=== PATIENT | male | born 1985 | race Caucasian/White ===

== ENCOUNTER 2019-03-06 16:38 | Emergency (ER) | payer OTHER ==
[2019-03-06 17:11] VITALS: BP 130/87
--- NOTE | 2019-03-06 17:37 | UC ---
Respiratory Complaint HPI - HPI Summary HPI Summary: 33-year-old male who states he has had increasing shortness of breath since he started on medication to treat hepatitis C. He also has some subcutaneous nodules on both arms which has been progressively worsening over the past few weeks. He denies IV drug use. - History of Current Complaint Chief Complaint: UCRespiratory Stated Complaint: CHEST CONGESTION Time Seen by Provider: 03/06/19 17:36 Hx Obtained From: Patient Onset/Duration: Gradual Onset Timing: Intermittent Episodes Severity Initially: Mild Severity Currently: Mild Pain Intensity: 0 Character: Cough: Nonproductive Aggravating Factors: Exertion Alleviating Factors: Spontaneous Resolution Associated Signs And Symptoms: Positive: Negative - Allergies/Home Medications Allergies/Adverse Reactions: Allergies Allergy/AdvReac Type Severity Reaction Status Date / Time No Known Allergies Allergy Verified 03/06/19 17:12 Home Medications: Home Medications Unobtainable 03/06/19 [History Confirmed 03/06/19] PMH/Surg Hx/FS Hx/Imm Hx Previously Healthy: Yes Other History Of: Hepatitis C - Surgical History Surgical History: Yes Surgery Procedure, Year, and Place: Hand - Family History Known Family History: Positive: Non-Contributory - Social History Alcohol Use: None Substance Use Type: None Smoking Status (MU): Current Some Day Smoker Review of Systems All Other Systems Reviewed And Are Negative: Yes Skin: Positive: Other - Patient has several subcutaneous nodules on the forearms bilaterally. He denies IV drug use or any other injectable drug use. Respiratory: Positive: Shortness Of Breath - Patient states he has occasional shortness of breath mostly with exertion. He has an occasional nonproductive cough. Is Patient Immunocompromised?: No Physical Exam Triage Information Reviewed: Yes Appearance: Well-Appearing, No Pain Distress, Well-Nourished Vital Signs: Initial Vital Signs Temp 98.1 F 03/06/19 17:08 Pulse 78 03/06/19 17:08 Resp 12 03/06/19 17:08 BP 130/87 03/06/19 17:08 Pulse Ox 95 03/06/19 17:08 Vital Signs Reviewed: Yes Eyes: Positive: Conjunctiva Clear ENT: Positive: Hearing grossly normal, Pharynx normal, TMs normal, Uvula midline Neck: Positive: Supple, Nontender, No Lymphadenopathy Respiratory: Positive: Lungs clear, Normal breath sounds, No respiratory distress, No accessory muscle use Cardiovascular: Positive: RRR, No Murmur, Pulses Normal, Brisk Capillary Refill Musculoskeletal Exam: Normal Neurological Exam: Normal Psychological Exam: Normal Skin: Positive: Other - Patient has several subcutaneous nodules on both forearms that are nontender on palpation, non-erythematous and firm to touch. Respiratory Course/Dx - Course Course Of Treatment: CXR: CARDIOMEDIASTINAL SILHOUETTE: The cardiomediastinal silhouette is normal. RENO: There is prominence of the reno bilaterally. PLEURA: The costophrenic angles are sharp. No pleural abnormalities are noted. LUNG PARENCHYMA: The lungs are clear. ABDOMEN: The upper abdomen is clear. There is no subphrenic gas. BONES AND SOFT TISSUES: No bone or soft tissue abnormalities are noted. OTHER: None. IMPRESSION: HILAR PROMINENCE WHICH MAY REFLECT LYMPHADENOPATHY VERSUS ENLARGEMENT OF THE PULMONARY VASCULATURE. After discussion with Dr. Badillo, the patient is to discontinue his medication that he streaking for hepatitis C and call his prescribing physician in the morning for further follow-up. He is also to discuss the subcutaneous nodules with his primary care provider. Patient is agreeable to this plan of action. If he has any worsening symptoms he is to go to the emergency room for further treatment. - Differential Dx/Diagnosis Provider Diagnosis: Cough Discharge ED - Sign-Out/Discharge Documenting (check all that apply): Patient Departure All imaging exams completed and their final reports reviewed: Yes - Discharge Plan Condition: Good Disposition: HOME Referrals: No Primary Care Phys,NOPCP [Primary Care Provider] - Additional Instructions: Stop the antiviral medicine we discussed. Go to the emergency room if you have any worsening symptoms or shortness of breath or difficulty breathing. Call your primary care provider who prescribed the medication in the morning. - Billing Disposition and Condition Condition: GOOD Disposition: Home
== END 2019-03-06 18:26 | disposition home or self-care (01) ==
LOC: UCEAST 16:38
DX: R05 Cough (principal); R06.02 Shortness of breath; B19.20 Unspecified viral hepatitis C without hepatic coma; R22.33 Localized swelling, mass and lump, upper limb, bilateral; F17.200 Nicotine dependence, unspecified, uncomplicated
CPT/HCPCS: 71046; 99211; G0463

== ENCOUNTER 2019-03-08 16:34 | Emergency (ER) | payer OTHER ==
--- NOTE | 2019-03-08 17:14 | ED ---
Shortness of Breath - HPI Summary HPI Summary: 33 year old M presenting to [facility] accompanied by complains of worsening shortness of breath with associated chest pain that started 10 days ago. 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 Had CXR done which was negative for pneumonia and bronchitis. Reports nodules on his forearms, wrists, hands x 10 days which are not painful or erythematous. Reports 15 pound weight loss in 10 days. Denies fever, vomiting. States he was referred to the ED by [facility]. Symptoms aggravated by nothing. Symptoms alleviated by nothing. Hx IV drug injection, has been sober for 6 months per . 's phone number: [phone] Patient's phone number: [phone] - History of Current Complaint Chief Complaint: EDShortnessOfBreath Time Seen by Provider: 03/08/19 16:53 Hx Obtained From: Patient, Family/Flight Security Specialist - Onset/Duration: Lasting Days - 10, Still Present Timing: Constant Aggravating Factors: Nothing Alleviating Factors: Nothing - Allergy/Home Medications Allergies/Adverse Reactions: Allergies Allergy/AdvReac Type Severity Reaction Status Date / Time No Known Allergies Allergy Verified 03/08/19 17:28 Home Medications: Home Medications Buprenorphine HCl/Naloxone HCl [Buprenorp-Nalox 4-1 mg Sl Film] 1 each SL DAILY 03/08/19 [History Confirmed 03/08/19] Buprenorphine HCl/Naloxone HCl [Buprenorp-Nalox 8-2 mg Sl Film] 2 film SL DAILY 03/08/19 [History Confirmed 03/08/19] Sofosbuvir/Velpatasvir [Sofosbuvir-Velpatasvir 400-100] 1 tab PO DAILY 03/08/19 [History Confirmed 03/08/19] PMH/Surg Hx/FS Hx/Imm Hx Endocrine/Hematology History: Denies: Hx Diabetes Cardiovascular History: Denies: Hx Hypertension GI History: Reports: Other GI Disorders - hep C - Surgical History Surgery Procedure, Year, and Place: Hand Infectious Disease History: No Infectious Disease History: Reports: Hx Hepatitis - C Denies: Traveled Outside the [place] in Last 30 Days - Family History Known Family History: Negative: Diabetes - Social History Alcohol Use: None Hx Substance Use: Yes Substance Use Comment - Amount & Last Used: IV drugs Hx Tobacco Use: Yes Smoking Status (MU): Current Some Day Smoker Review of Systems Negative: Fever Positive: Chest Pain Positive: Shortness Of Breath Positive: Nausea, Other - recent weight loss. Negative: Vomiting Positive: Other - nodules on his forearms, wrists, hands All Other Systems Reviewed And Are Negative: Yes Physical Exam - Summary Physical Exam Summary: Constitutional: Well-developed, Well-nourished, Alert. (-) Distressed Skin: Warm, Dry, numerous superficial soft nodules to forearms and hands and and two to neck HENT: Normocephalic; Atraumatic Eyes: Conjunctiva normal Neck: Musculoskeletal ROM normal neck. (-) JVD, (-) Stridor, (-) Nuchal rigidity Cardio: Rhythm regular, rate normal, Heart sounds normal; Intact distal pulses; Radial pulses are 2+ and symmetric. (-) Murmur Pulmonary/Chest wall: Effort normal. (-) Respiratory distress, (-) Wheezes, (-) Rales Abd: Soft, (-) tenderness, (-) Distension, (-) Guarding, (-) Rebound Musculoskeletal: (-) Edema Lymph: (+) Cervical adenopathy, no supraclavicular LN. Neuro: Alert, Oriented x3 Psych: Mood and affect Normal Triage Information Reviewed: Yes Vital Signs On Initial Exam: Initial Vitals Temp Pulse Resp BP Pulse Ox 98.8 F 60 15 127/82 93 03/08/19 16:41 03/08/19 16:41 03/08/19 16:41 03/08/19 16:41 03/08/19 16:41 Vital Signs Reviewed: Yes Procedures - Sedation Patient Received Moderate/Deep Sedation with Procedure: No Diagnostics - Vital Signs Vital Signs Temp Pulse Resp BP Pulse Ox 03/08/19 16:41 98.8 F 60 15 127/82 93 - Laboratory Result Diagrams: 03/08/19 17:40 03/08/19 17:39 Lab Statement: Any lab studies that have been ordered have been reviewed, and results considered in the medical decision making process. - Radiology CXR Radiology Interpretation Completed By: ED Physician Summary of Radiographic Findings: lymphadenopathy. pending official report - CT CHEST CTA CT Interpretation Completed By: Radiologist Summary of CT Findings: No evidence of PE. There is a 1 cm noncalcified nodule in the right middle lobe and another in the left lower lobe. According to Fleischner society guidelines, followup is recommended in 6 months. Most significant abnormality is mediastinal/hilar adenopathy and interstitial prominence. Rule out sarcoidosis or lymphoma. ED physician has reviewed this report. Re-Evaluation - Re-Evaluation First Eval Re-Evaluation Time: 17:58 Comment: CXR shows lymphadenopathy. Will order CTA Chest Second Eval Re-Evaluation Time: 20:36 Comment: informed of CTA findings concerning for lymphoma. agrees to follow up with Bj Barrera from oncology, buddy return if he does not hear from them within a week. Course/Dx - Course Course Of Treatment: 30-year-old male the history of IV drug use, hepatitis C on current medication, presents with shortness of breath and nodules of his forearm. Physical exam w well-appearing male, O2 sat around 95% on room air easy work of breathing. Nodules on forearms and lateral neck possibly consistent w LAD. CXR from with LAD. Concern for infectious vs malignant process, check labs and CTA chest. - Diagnoses Provider Diagnoses: Shortness of breath, Lymphadenopathy - Physician Notifications Discussed Care of Patient With: Bj Barrera Time Discussed With Above Provider: 20:32 Instructed by Provider To: Other - Bj Barrera, oncology PA, agrees to get patient an expedited appointment and call him Discharge ED - Sign-Out/Discharge Documenting (check all that apply): Patient Departure - Discharge - Discharge Plan Condition: Stable Disposition: HOME Patient Education Materials: Lymphadenopathy (ED), Shortness of Breath (ED) Forms: *Work Release Referrals: Bj Barrera PA [Physician Glue Wheel Operator] - Additional Instructions: You were seen in the emergency department for shortness of breath and bumps on your arms. Your CT scan showed lymphadenopathy which could be consistent with an infection, inflammation, or something like lymphoma. We discussed this w our on-call oncologist who suggested a follow-up in the next week outpatient. Please call the office if you do not hear from them. If any studies were not completed at the time of discharge you will be called with the relevant results. Please follow up with your primary care doctor in next 2-3 days and return to emergency department for worsening shortness of breath, trouble breathing, chest pain, passing out or concerning symptoms. It was a pleasure taking care of you today. - Billing Disposition and Condition Condition: STABLE Disposition: Home - Attestation Statements Document Initiated by Hardy: Yes Documenting Scribe: Saida Negron Provider For Whom Hardy is Documenting (Include Credential): Mariano Abad MD Scribe Attestation: I, Saida Negron, scribed for Mariano Abad MD on 03/08/19 at 2206. Scribe Documentation Reviewed: Yes Provider Attestation: The documentation as recorded by the theaibeSaida accurately reflects the service I personally performed and the decisions made by me, Mariano Abad MD Status of Scribe Document: Viewed
[2019-03-08 17:52] LABS: ABS Basophils 0.1 10^3/ul (0-0.2); ABS Eosinophils 0.2 10^3/ul (0-0.6); ABS Lymphocytes 1.4 10^3/ul (1.0-4.8); ABS Monocytes 0.6 10^3/ul (0-0.8); ABS Neutrophils 3.3 10^3/ul (1.5-7.7); Eosinophil % 3.7 %; Hematocrit 40 % (42-52); Hemoglobin 13.6 g/dL (14.0-18.0); Mean Corpuscular HGB Conc 34 g/dL (31-36); Mean Corpuscular Hemoglobin 28 pg (27-31); Mean Corpuscular Volume 83 fL (80-94); Mean Platelet Volume 7.4 fL (7.4-10.4); Platelet Count 316 10^3/uL (150-450); Red Blood Count 4.84 10^6 /uL (4.18-5.48); Red Cell Distribution Width 13 % (10-15); White Blood Count 5.5 10^3/uL (3.5-10.8)
[2019-03-08 18:09] LABS: Albumin 3.9 g/dL (3.2-5.2); Albumin/Globulin Ratio 1.6 (1-3); BUN/Creatinine Ratio 14.4 (8-20); Calcium 9.2 mg/dL (8.6-10.3); EGFR African American 99.5 (>60); EGFR Non-African American 82.2 (>60); Globulin 2.5 g/dL (2-4); Total Bilirubin 0.3 mg/dL (0.2-1.0); Total Protein 6.4 g/dL (6.4-8.9)
[2019-03-08] MEDS ORDERED: Iohexol 350* (CONTRAST) 500 ML MDV IV ONE (18:24)
[2019-03-08 19:07] LABS: Potassium 4.8 mmol/L (3.5-5.0)
[2019-03-08 19:28] LABS: INR 1.02 (0.82-1.09)
[2019-03-08 20:12] LABS: HIV 4th Generation Nonreactive (Nonreactive)
[2019-03-08 21:02] VITALS: BP 123/81
== END 2019-03-08 20:55 | disposition home or self-care (01) ==
LOC: ED 16:34
DX: R06.02 Shortness of breath (principal); R59.1 Generalized enlarged lymph nodes; R91.8 Other nonspecific abnormal finding of lung field; F17.200 Nicotine dependence, unspecified, uncomplicated; Z79.899 Other long term (current) drug therapy
CPT/HCPCS: 36415; 71046; 71275; 80053; 85025; 85379; 85610; 87389; 99283; Q9967